=== PATIENT | female | born 1975 | race Caucasian/White ===

== ENCOUNTER 2019-05-25 13:32 | Emergency (ER) | payer OTHER ==
[~2019-05-25] VITALS: Ht 157.5 cm; Wt 56.7 kg
[~2019-05-25 13:32] MED LIST: ADDERALL 15 MG15 MG PO; MACROBID 100 M100 M1 PO; PRISTIQ50 MG PO; TRILEPTAL600 MG PO; XANAX XR1 MG PO; ZOFRAN4 MG PO
[2019-05-25] MEDS ORDERED: ABILIFY20 MG PO (13:46)
[2019-05-25 14:04] LABS: URINE BILIRUBIN NEGATIVE (Negative); URINE BLOOD 1+ (Negative); URINE CLARITY SL CLOUDY; URINE COLOR YELLOW; URINE GLUCOSE-RANDOM NEGATIVE (Negative); URINE KETONES 1+ (Negative); URINE LEUKOCYTES-REFLEX TRACE (Negative); URINE PROTEIN NEGATIVE (Negative); URINE UROBILINOGEN 0.2 E.U./dl (0.2-1.0)
[2019-05-25 14:06] LABS: URINE NITRITE-REFLEX POSITIVE (Negative)
[2019-05-25 14:12] LABS: BACTERIA-REFLEX >30 Many /HPF (None Seen); SQUAMOUS 4-10 Moderate /LPF (0-3); URINE WBC-REFLEX 6-15 Few /HPF (0-5)
[2019-05-25 14:13] LABS: CASTS None Seen /LPF (None Seen); CRYSTALS None Seen /LPF (None Seen); MUCUS >6 Heavy strn/LPF (None Seen)
[2019-05-25 14:19] LABS: ABSOLUTE LYMPHOCYTES 1.3 thou/uL (0.8-5.3); ABSOLUTE MONOCYTES 0.5 thou/uL (0.0-1.2); ABSOLUTE NEUTROPHILS 5.5 thou/uL (1.6-8.1); BASOPHILS 0.4 %; EOSINOPHILS 0.4 %; HEMOGLOBIN 14.1 gm/dL (12.0-15.0); LYMPHOCYTES 17.8 %; MCH 28.2 pg (26.0-34.0); MCHC 33.6 g/dL (28.0-37.0); MONOCYTES 6.5 %; MPV 8.8 fl. (7.2-11.1); NUCLEATED RBCS 0 /100WBC; PLATELET COUNT* 333 thou/uL (150-400); POLYS 74.9 %; RBC 5.01 mil/uL (4.20-5.00); RDW-CV 14.1 % (10.5-14.5); WBC 7.3 thou/uL (4.0-11.0)
[2019-05-25 14:21] LABS: CALCIUM 9.7 mg/dL (8.5-10.1)
[2019-05-25 14:26] LABS: ALBUMIN 4.6 g/dL (3.4-5.0); TOTAL BILIRUBIN 0.4 mg/dL (<0.1-1.0); TOTAL PROTEIN 8.3 g/dL (6.4-8.2)
[2019-05-25] MEDS ORDERED: MACRODANTIN100 MG PO (15:05)
[2019-05-25] MEDS ORDERED: ZOFRAN ODT4 MG DISSOLVE (15:06)
[2019-05-25 15:20] VITALS: BP 96/55
== END 2019-05-25 15:20 | disposition home or self-care (01) ==
LOC: M.ERS 13:32
PROVIDERS: Nurse Practitioner Family
DX: N39.0 Urinary tract infection, site not specified (principal); K57.30 Diverticulosis of large intestine without perforation or abscess without bleeding; F41.9 Anxiety disorder, unspecified; F32.9 Major depressive disorder, single episode, unspecified; G43.909 Migraine, unspecified, not intractable, without status migrainosus; Z90.49 Acquired absence of other specified parts of digestive tract; Z98.890 Other specified postprocedural states; Z90.711 Acquired absence of uterus with remaining cervical stump; Z88.6 Allergy status to analgesic agent

== ENCOUNTER 2021-05-13 08:57 | Emergency (ER) | payer OTHER ==
[~2021-05-13] VITALS: Ht 157.5 cm; Wt 55.8 kg
[~2021-05-13 08:57] MED LIST changes: +ABILIFY20 MG PO; +MACRODANTIN100 MG PO; +ONDANSETRON ODT8 MG PO; +REGLAN 5 MG TAB5 MG PO; +TRAMADOL 50 MG50 MG PO; +ZOFRAN ODT4 MG DISSOLVE
[2021-05-13] MEDS ORDERED: ADDERALL 10 MG10 MG PO (09:11)
[2021-05-13] MEDS ORDERED: AUGMENTIN 875-1 EACH PO (09:37)
[2021-05-13] MEDS ORDERED: HYDROCODON-ACE1 EAC7 PO (09:37)
[2021-05-13 09:46] VITALS: BP 110/70
== END 2021-05-13 09:46 | disposition home or self-care (01) ==
LOC: M.ERS 08:57
DX: S81.011A Laceration without foreign body, right knee, initial encounter (principal); G43.909 Migraine, unspecified, not intractable, without status migrainosus; Z90.49 Acquired absence of other specified parts of digestive tract; Z98.890 Other specified postprocedural states; Z90.711 Acquired absence of uterus with remaining cervical stump; Z98.82 Breast implant status; W54.0XXA Bitten by dog, initial encounter; Y93.89 Activity, other specified; Y92.89 Other specified places as the place of occurrence of the external cause; Y99.8 Other external cause status; Z88.8 Allergy status to other drugs, medicaments and biological substances